=== PATIENT | female | born 1945 | race Caucasian/White ===

== ENCOUNTER 2020-05-13 10:56 | Outpatient (CLI) | payer MEDICARE, OTHER, SELFPAY ==
--- NOTE | 2020-05-13 11:07 | XR_ITS ---
WS: [id number] KNEE LEFT TECHNIQUE: 2 views of the left knee CLINICAL INFORMATION: PAIN IN LEFT KNEE COMPARISON: None. FINDINGS: Normal anatomic alignment. Mild hypertrophic changes along the joint line. Moderate hypertrophic dodge lla. Moderate degenerative narrowing at the patellofemoral articulation. Small suprapatellar effusion . Vascular calcification. Soft tissue edema. XR/XR knee LT 1-2V [id number] IMPRESSION: 1. Hypertrophic patella with moderate narrowing at the patellofemoral articula tion. 2. Small suprapatellar effusion with soft tissue edema.
== END 2020-05-13 10:57 | disposition home or self-care (01) ==
LOC: RADWPI 11:04
PROVIDERS: Family Provider Nurse Practitioner Family; PCP Nurse Practitioner Family; Visit Provider Nurse Practitioner Family
DX: M25.562 Pain in left knee (principal); M25.462 Effusion, left knee; R60.0 Localized edema
CPT/HCPCS: 73560

== ENCOUNTER 2021-05-19 15:19 | Outpatient (CLI) | payer MEDICARE, OTHER, SELFPAY ==
--- NOTE | 2021-05-19 15:40 | XR_ITS ---
WS: [id number] Exam: XR knee RT 1-2V [id number] Date/Time of Exam: 05/19/2021 3:40 PM Reason For Exam: RT. KNEE PAIN No fracture or dislocation. Moderate degenerative narrowing of the medial joint compartment. No joint effusion. Minimal degenerative change of the posterior patella. XR/XR knee RT -2V 27558 IMPRESSION: 1. Degenerative changes as noted above. 2. No fracture or joint effusion.
--- NOTE | 2021-05-19 15:40 | XR_ITS ---
WS: [id number] Exam: XR knee LT 1-2V [id number] Date/Time of Exam: 05/19/2021 3:41 PM Reason For Exam: LT. KNEE PAIN No acute fracture or dislocation. Moderate degenerative thinning of the medial joint compartment. Mar ginal osteophytes noted along the lateral joint space. No joint effusion. Spurring of the posterior p atella. XR/XR knee LT -2V 13317 IMPRESSION: 1. Moderate degenerative changes. No acute fracture or joint effusion
== END 2021-05-19 15:20 | disposition home or self-care (01) ==
LOC: RAD 15:26
PROVIDERS: PCP Nurse Practitioner Family; Visit Provider Nurse Practitioner Family
DX: M25.551 Pain in right hip (principal); M25.552 Pain in left hip
CPT/HCPCS: 73560